=== PATIENT | male | born 1955 | race Asian ===

== ENCOUNTER 2019-07-12 12:35 | Emergency (ER) | payer OTHER ==
[2019-07-12 12:47] VITALS: BMI 30.4
[2019-07-12] MEDS ORDERED: ACETAMINOPHEN 1000 MG/100 ML VIAL (NON FORMULARY) IVPB ONE (13:13)
[2019-07-12] MEDS ORDERED: SODIUM CHLORIDE 0.9% 500 ML INFUS.BAG IV ONE (13:13)
[2019-07-12] MEDS ORDERED: ACETAMINOPHEN INJECTION 100 ML IVPB ONE (13:17)
[2019-07-12 13:20] LABS: BASO % 0.4 % (0-2.0); EOS % 3.7 % (0-4.5); HEMATOCRIT 38.5 % (35.4-49); HEMOGLOBIN 13.1 GM/dL (11.7-16.9); LYMPH % 37.5 % (8-40); MCH 28.3 pg (25.7-33.7); MEAN CELL VOLUME 83.2 fl (80-96); NEUT % 45.4 % (42.8-82.8); PLATELET COUNT 335 K/MM3 (134-434); RBC 4.63 M/mm3 (4.00-5.60); RDW 13.4 % (11.9-15.9); WHITE BLOOD COUNT 9.5 K/mm3 (4.0-10.0)
--- NOTE | 2019-07-12 13:29 | PDOC ---
History of Present Illness - General Chief Complaint: Pain, Acute Stated Complaint: SENT BY PCP-Rt.LQP r/o:Appendicitis Time Seen by Provider: 07/12/19 12:50 History Source: Patient Exam Limitations: No Limitations - History of Present Illness Initial Comments: 07/12/19 21:02 HPI: 63M denies PMH sent in by Dr. Savage for constant nonradiating gnawing RLQ since this AM. Denies f/c/n/v/po intolerance/diarrhea/dysuria/frequency/ testicular pain or swelling. Abd surg - hernia repair. No sick contacts. 2 weeks ago, pt had IND for a scrotal abscess and treated w/ 10d course abx. PMH: hemorrhoids otherwise denies; but does not frequent healthcare system often Colonscopy last year per patient MED: denies NKDA Endorses smoking Past History - Past Medical History Allergies/Adverse Reactions: Allergies Allergy/AdvReac Type Severity Reaction Status Date / Time No Known Drug Allergies Allergy Verified 08/30/14 15:43 Home Medications: Ambulatory Orders NK [No Known Home Medication] 07/12/19 COPD: No - Surgical History Cholecystectomy: No - Immunization History Immunization Up to Date: No - Psycho Social/Smoking Cessation Hx Smoking History: Never smoked Have you smoked in the past 12 months: No Number of Cigarettes Smoked Daily: 1 Information on smoking cessation initiated: No 'Breaking Loose' booklet given: 08/31/14 Hx Alcohol Use: No Drug/Substance Use Hx: No Substance Use Type: None Review of Systems - Review of Systems Able to Perform ROS?: Yes Comments:: 07/12/19 21:02 ROS: CONSTITUTIONAL: Denies F / C RESP: Denies SOB CARD: Denies chest pain GI: Endorses RLQ and suprapubic pain. Endorses chronic but sporadic blood on stool and h/o hemorrhoids. Denies N / V / D, inability to tolerate PO : Denies dysuria, hematuria, frequency SKIN: Denies rashes Is the patient limited Indonesian proficient: No *Physical Exam - Vital Signs Last Vital Signs Temp Pulse Resp BP Pulse Ox 98.5 F 64 18 112/65 97 07/12/19 12:43 07/12/19 12:43 07/12/19 12:43 07/12/19 12:43 07/12/19 12:43 - Physical Exam Comments: 07/12/19 21:02 PE: GEN: Well appearing, NAD, comfortable. AAOx3 HEENT: NC/AT, EOMI. No facial asymmetry. Normal voice. Supple neck w/ FROM. CV: Quiet; S1/S2, RRR, no m/r/g LUNG: CTAB, no wheezes, crackles, rales, rhonchi. GI: +TTP RLQ w/ mild guarding otherwise soft, nd, +BS, and no rebound. Neg CVAT b/l. Skin tag the LLQ. EXTREMITIES: No obvious deformities of all extremities. SKIN: warm, dry, normal turgor PSYCH: normal mood and affect NEURO: Moving all extremities well, ambulating well ED Treatment Course - LABORATORY CBC & Chemistry Diagram: 07/12/19 13:00 07/12/19 13:00 Medical Decision Making - Medical Decision Making 07/12/19 13:16 MDM: 63M c/o 1 day of RLQ pain w/ TTP and mild guarding. No urinary sx or testicular pain/swelling. DDx - appendicitis, hernia, gastritis/colitis. Unlikely SBO or testicular pathology - CBC, CMP - UA/UC - EKG - CT A/P - Tylenol, NS 07/12/19 15:44 Labs reviewed Elevated BUN/Cr UA neg 07/12/19 16:53 CT IMPRESSION: - No definite CT findings of acute pathology identified. - There is no CT evidence of acute appendicitis or diverticulitis. - A 5 x 3.4 x 2.4 cm fluid collection is seen within the right lower pelvis ventrally adjacent to the internal ring - ? postsurgical finding. Correlate clinically and with the results of prior imaging studies if available from a different facility. If prior studies are not available for comparison correlation with 2-3 month follow-up CT is suggested to evaluate stability. - Small bilateral inguinal hernias containing fat only. Small umbilical hernia containing fat only. - Mild splenomegaly. - Several nonspecific mildly enlarged retroperitoneal and bilateral pelvic lymph nodes are noted. If prior imaging studies are not available from a different facility for direct comparison correlation with PET/CT is suggested. - Mild intrahepatic and extrahepatic biliary tract dilatation is seen. If prior studies are not available for direct comparison correlation with MRI/MRCP suggested, nonemergent unless otherwise clinically indicated. No definite CT evidence of cholelithiasis (sensitivity 80%). - Probable diffuse hepatic steatosis. If clinically indicated correlate with nonemergent sonography. 07/12/19 16:[address] findings w/ patient; emphasized the importance of PCP f/u DC home w/ PCP f/u and return precautions Discharge - Discharge Information Problems reviewed: Yes Clinical Impression/Diagnosis: Abdominal pain Qualifiers: Abdominal location: right lower quadrant Qualified Code(s): R10.31 - Right lower quadrant pain Condition: Stable Disposition: HOME - Admission No - Follow up/Referral - Patient Discharge Instructions Patient Printed Discharge Instructions: DI for Abdominal Pain-Adult Additional Instructions: You were evaluated in the Emergency Department You may take tylenol for pain, use as directed on bottle. Follow up with Dr. Savage in the next 3-5 days regarding this ED visit YOUR CT SCAN DID NOT FIND APPENDICITIS BUT THERE WERE SIGNIFICANT FINDINGS THAT REQUIRE FOLLOW UP. WE HAVE PROVIDED YOU A COPY OF THE CT SCAN REPORT, PLEASE SHOW IT TO DR. SAVAGE ON YOUR FOLLOW UP VISIT IN THE NEXT 3-5 DAYS. IMMEDIATELY return to the ED if you experience any of the following: - Worsening abdominal pain - Severe vomiting - Inability to eat or drink - ANYTHING that concerns you - Post Discharge Activity
[2019-07-12 13:32] LABS: INR 1.25 (0.83-1.09); PROTHROMBIN TIME (PATIENT) 14.8 SEC (9.7-13.0)
[2019-07-12 13:50] LABS: ALBUMIN 3.4 g/dl (3.4-5.0); BILIRUBIN,TOTAL 0.3 mg/dL (0.2-1); BLOOD UREA NITROGEN 31.7 mg/dL (7-18); CALCIUM 8.6 mg/dL (8.5-10.1); CREATININE 1.2 mg/dL (0.55-1.3); POTASSIUM 4.5 mmol/L (3.5-5.1); TOT PROT 7.5 g/dl (6.4-8.2)
--- NOTE | 2019-07-12 14:24 | PDOC ---
Documentation entered by Cam Valerio SCRIBE, acting as scribe for Siva Ruffin MD. Siva Ruffin MD: This documentation has been prepared by the Iman george Xhesika, SCRIBE, under my direction and personally reviewed by me in its entirety. I confirm that the documentation accurately reflects all work, treatment, procedures, and medical decision making performed by me. Attending Attestation - Resident Resident Name: KanaAlex - ED Attending Attestation I have performed the following: I have examined & evaluated the patient, The case was reviewed & discussed with the resident, I agree w/resident's findings & plan, Exceptions are as noted - HPI HPI: 07/12/19 13:12 The patient is a 63 year old male with no significant PMH who presents to the emergency department advised by PCP, for constant right lower quadrant abdominal pain x1 day. Patient notes previous abdominal surgeries for hernia repair. The patient denies chest pain, shortness of breath, headache and dizziness. Denies fever, chills, cough, nausea, vomiting, diarrhea and constipation. Denies dysuria, frequency, urgency and hematuria. Allergies: NKDA Past surgical history: Hernia repair PCP: Dr. Edwards - Physicial Exam PE: 07/12/19 13:14 GENERAL: Awake, alert, and fully oriented, in no acute distress. HEAD: No signs of trauma EYES: PERRLA, EOMI, sclera anicteric, conjunctiva clear ENT: Auricles normal inspection, hearing grossly normal, nares patent, oropharynx clear without exudates. Moist mucosa NECK: Nontender, no stepoffs, Normal ROM, supple, no lymphadenopathy, JVD, or masses LUNGS: Breath sounds equal, clear to auscultation bilaterally. No wheezes, and no crackles HEART: Regular rate and rhythm, normal S1 and S2, no murmurs, rubs or gallops ABDOMEN: + RLQ TTP and suprapubic TTP, normoactive bowel sounds. No guarding, no rebound. No masses EXTREMITIES: Normal range of motion, no edema. No clubbing or cyanosis. No cords, erythema, or tenderness NEUROLOGICAL: Cranial nerves II through XII intact. 5/5 strength and sensation in all extremities, Normal speech, normal gait, normal cerebellar function SKIN: Warm, Dry, normal turgor, no rashes or lesions noted. - Medical Decision Making 07/12/19 14:29 63 M with RLQ pain. No evidence of testicular torsion or other scrotal pathology., Will evaluate for appy. - Labs, UA - CTAP 07/12/19 16:[address] read 07/12/19 16:49 CT without any acute findings. Pt is well appearing, with normal vitals. Clinically stable for DC at this time. I discussed the physical exam findings, ancillary test results and final diagnoses with the patient. I answered all of the patient's questions. The patient was satisfied with the care received and felt comfortable with the discharge plan and treatment plan. The patient agrees to follow up with the primary care physician within 24-72 hours.
[2019-07-12 14:33] LABS: URINE APPEARANCE CLEAR; URINE BILIRUBIN NEGATIVE (NEGATIVE); URINE COLOR YELLOW; URINE GLUCOSE (UA) NEGATIVE (NEGATIVE); URINE KETONE NEGATIVE (NEGATIVE); URINE LEUK ESTERASE NEGATIVE (NEGATIVE); URINE NITRITE NEGATIVE (NEGATIVE); URINE PROTEIN NEGATIVE (NEGATIVE); URINE UROBILINOGEN 0.2 mg/dL (0.2-1.0)
[2019-07-12 16:56] VITALS: BP 109/63; PULSE 54; TEMP 97.5
--- NOTE | 2019-07-13 12:10 | EKG ---
Test Reason : Blood Pressure : / mmHG Vent. Rate : 058 BPM Atrial Rate : 058 BPM P-R Int : 164 ms QRS Dur : 112 ms QT Int : 418 ms P-R-T Axes : 010 047 042 degrees QTc Int : 410 ms SINUS BRADYCARDIA INCOMPLETE LEFT BUNDLE BRANCH BLOCK BORDERLINE ECG NO PREVIOUS ECGS AVAILABLE Confirmed by Percy Rios MD ([id number]) on 07/13/2019 12:10:26 PM Referred By: Confirmed By:Percy Rios MD
== END 2019-07-12 17:17 | disposition home or self-care (01) ==
LOC: JER 12:35
PROC: 3E033NZ Introduction of Analgesics, Hypnotics, Sedatives into Peripheral Vein, Percutaneous Approach (ICD-10-PCS; principal; 2019-07-12)
DX: R10.31 Right lower quadrant pain (principal); F17.210 Nicotine dependence, cigarettes, uncomplicated
CPT/HCPCS: 36415; 74177-TC; 80053; 81003; 85025; 85610; 86850; 86900; 86901; 93005; 93010; 96374; 99283-25; J0131; Q9967